=== PATIENT | male | born 1970 | race Caucasian/White ===

== ENCOUNTER 2019-11-27 16:55 | Observation (INO) ==
[2019-11-27] MEDS ORDERED: ZOFRAN IV PRN (17:01)
[2019-11-27] MEDS ORDERED: NS 1,000 ML IV ONE (17:01)
[2019-11-27] MEDS: TYLENOL PO PRN (18:05)
[2019-11-27] MEDS: ROCEPHIN 1 GM in NS 50 ML IV SCH (18:13)
[2019-11-27 18:30] LABS: HEMATOCRIT 45.3 % (42.0-52.0); HEMOGLOBIN 15.4 g/dL (14.0-18.0); MCH 28.4 PG (27-31); MCV 83.6 FL (81-99); MPV 9.9 FL (7.4-10.4); RBC 5.42 XMIL (4.7-6.1); RDW 13.1 % (11.5-14.5); WBC 6.29 X1000 (4.8-10.8)
[2019-11-27 18:48] LABS: AGAP 13; ALBUMIN 3.8 g/dL (3.5-5.0); ALKALINE PHOSPHATASE 64 U/L (32-122); BUN 18 mg/dL (8-22); CALCIUM 8.6 mg/dL (8.8-10.2); CHLORIDE 95 mmol/L (98-107); COSMO 272; CREATININE 0.9 mg/dL (0.7-1.2); ESTIMATED GFR > 60; GLUCOSE 133 mg/dL (70-104); GOT 24 U/L (10-34); GPT 16 U/L (10-44); POTASSIUM 3.8 mmol/L (3.5-5.1); SODIUM 134 mmol/L (136-145); TCO2 26 mmol/L (25-35); TOTAL PROTEIN 7.5 g/dL (6.3-8.3)
[2019-11-27] MEDS ORDERED: PNEUMOVAX 23 IM ONE (19:15)
[2019-11-27] MEDS: NS 1,000 ML IV SCH (20:18)
--- NOTE | 2019-11-27 20:30 | Diag Imaging Result Doc PS360 ---
EXAM: CHEST-PORTABLE 11/27/2019 HISTORY: dyspnea TECHNIQUE: AP portable at 2014 COMMENT: There is no evidence of acute cardiac or pulmonary disease. There are no previous studies. IMPRESSION: No acute disease. Electronically signed by Michael Mendez 11/27/2019 8:28 PM
[2019-11-27] MEDS ORDERED: ROBITUSSIN-AC PO PRN (21:17)
[2019-11-27] MEDS ORDERED: NORCO-7.5 PO PRN (21:18)
[2019-11-28] MEDS: NS 1,000 ML IV SCH (03:55)
[2019-11-28 07:04] LABS: HEMATOCRIT 41.6 % (42.0-52.0); HEMOGLOBIN 14.2 g/dL (14.0-18.0); MCH 28.4 PG (27-31); MCHC 34.1 g/dL (33-37); MCV 83.2 FL (81-99); RDW 13.2 % (11.5-14.5)
[2019-11-28 07:46] LABS: AGAP 12; ALBUMIN 3.3 g/dL (3.5-5.0); ALKALINE PHOSPHATASE 55 U/L (32-122); BUN 15 mg/dL (8-22); CALCIUM 7.7 mg/dL (8.8-10.2); CHLORIDE 100 mmol/L (98-107); COSMO 268; CREATININE 0.6 mg/dL (0.7-1.2); ESTIMATED GFR > 60; GLUCOSE 108 mg/dL (70-104); GOT 21 U/L (10-34); GPT 13 U/L (10-44); MAGNESIUM 1.8 mg/dL (1.5-2.7); POTASSIUM 3.7 mmol/L (3.5-5.1); SODIUM 133 mmol/L (136-145); TCO2 21 mmol/L (25-35); TOTAL PROTEIN 5.9 g/dL (6.3-8.3)
[2019-11-28] MEDS ORDERED: NS 1,000 ML IV SCH (08:29)
[2019-11-28] MEDS: TYLENOL PO PRN (11:38)
[2019-11-28 13:28] VITALS: BP 118/65
[2019-11-28] MEDS: ROCEPHIN 1 GM in NS 50 ML IV SCH (17:35)
--- NOTE | 2019-11-28 22:05 | HISTORY AND PHYSICAL ---
CHIEF COMPLAINT: Febrile illness, generalized weakness. HISTORY OF PRESENT ILLNESS: The patient is a pleasant 49-year-old male who initially presented to the office with low-grade fevers, chills and greatly decreased oral intake. Initial blood pressure in the office was 90 systolic. The patient states that he is lightheaded, fatigued. He has had not anything to eat in the past 3 days. He has had nothing really that he has kept down orally to drink in the past day. States that he is feels though he is going to pass out when he stands up. ALLERGIES: No known drug allergies. MEDICATIONS: Lotensin. REVIEW OF SYSTEMS: As noted above. Positive cough, congestion, shortness of breath, muscle aches, fatigue, chills, lightheadedness, dizziness upon standing, dyspnea on exertion. Denies chest pain, palpitation, denies numbness, tingling, or focalized weakness. Denies dysuria, frequency. Denies constipation, melena, hematochezia, hemoptysis or hematemesis. Does have a headache. Denies any blurred vision, focalized numbness, tingling or weakness in his extremities. Denies any skin rashes. PAST MEDICAL HISTORY: Hypertension. SOCIAL HISTORY: The patient lives at home. Continues to smoke. Does drink, but only on occasion. He is currently self employed. FAMILY HISTORY: Noncontributory. PHYSICAL EXAMINATION: VITAL SIGNS: Reviewed. Temp 100.3 degrees. Initial blood pressure 89/60, currently 115/48. GENERAL: Patient is pleasant, but ill-appearing. He is in no respiratory distress. HEENT: Normocephalic. NECK: Supple. CARDIOVASCULAR: Regular rate. CHEST: Clear, nonlabored. No wheezing. No crackles. ABDOMEN: Soft, nondistended, nontender. EXTREMITIES: Moves all extremities. No edema. NEUROLOGIC: No changes. ASSESSMENT: 1. Febrile illness. 2. Hypertension. 3. Hypotension secondary to volume depletion. 4. Volume depletion. PLAN: We are going to admit patient to the hospital, IV fluids, antibiotics and we will follow. cc: Radames Lambert MD
--- NOTE | 2019-11-29 09:48 | DISCHARGE SUMMARY ---
ADMISSION DATE: 11/27/2019 DISCHARGE DATE: 11/28/2019 DISCHARGE DIAGNOSES: 1. Febrile illness, improved. 2. Nausea, vomiting, improved. 3. Hypotension with symptomatic syncope, resolved. 4. Hypertension, stable. CONSULTATIONS: None. PROCEDURES: None. BRIEF HOSPITAL COURSE: The patient is a 49-year-old male who is a chronic smoker. We again discussed with him the importance of stopping smoking, presented to the office and subsequent to the hospital with hypotension secondary to volume depletion from his febrile illness. He was placed on antibiotics, oxygen and IV fluids. Thankfully, on discharge, he is now awake, alert. He is ambulating. He is eating well. He is in no distress.. DISPOSITION: Patient will be discharged home. DISCHARGE INSTRUCTIONS: He will continue antibiotics for a total of 7-day course. We will continue to discuss with him the perils of smoking. We will follow his blood pressures. At this point, he will restart his blood pressure medications as they are elevated. No other changes made on his chronic home medication. cc: Radames Lambert MD
== END 2019-11-28 18:38 | disposition home or self-care (01) ==
LOC: P.DIRADM 16:55 → INTOOBSV 16:55 → P.MEDSURG 16:59
PROVIDERS: ADMIT Family Medicine; ATTEND Family Medicine